=== PATIENT | male | born 2000 | race Caucasian/White ===

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

== ENCOUNTER 2020-09-05 15:29 | Emergency (ER) | payer BC ==
[~2020-09-05] VITALS: Ht 180.3 cm; Wt 75.7 kg
[2020-09-05 17:54] LABS: BASO % 0.4 % (0.0-1.0); EOS % 0.4 % (1.0-4.0); HEMATOCRIT 43.3 % (42.0-52.0); LYMPH # 2.2 10*3/uL (1.3-4.4); LYMPH % 27.8 % (27.0-41.0); MEAN CELL VOLUME 83.6 fl (80.0-94.0); MEAN CORPUSCULAR HGB 30.1 pg (27.0-31.0); MEAN PLATELET VOLUME 10.7 fl (9.6-12.3); MONO # 0.5 10*3/uL (0.1-1.0); MONO % 5.9 % (3.0-9.0); NEUT # 5.1 10*3/uL (2.3-7.9); NEUT % 65.4 % (47.0-73.0); PLATELET COUNT AUTOMATED 194 10*3/uL (130-400); RED BLOOD COUNT 5.18 10*6/uL (4.50-5.90); RED CELL DISTRI WIDTH 12.1 % (0-14.5); WHITE BLOOD COUNT 7.8 10*3/uL (4.8-10.8)
[2020-09-05 18:18] LABS: ALBUMIN 4.4 gm/dl (3.1-4.5); ALKALINE PHOSPHATASE 71 U/L (45-117); BUN 18 mg/dl (7-24); CHLORIDE 105 mmol/L (98-107); LIPASE 80 U/L (73-393); POTASSIUM 3.5 mmol/L (3.5-5.1); SGOT/AST 12 IU/L (3-35); SGPT/ALT 19 U/L (12-78); SODIUM 137 mmol/L (136-145); TOTAL PROTEIN 7.9 gm/dL (6.4-8.2)
== END 2020-09-05 19:06 | disposition home or self-care (01) ==
LOC: ED 15:29
PROVIDERS: Emergency Medicine
DX: B35.3 Tinea pedis (principal); L25.9 Unspecified contact dermatitis, unspecified cause; F17.200 Nicotine dependence, unspecified, uncomplicated; Z98.890 Other specified postprocedural states

== ENCOUNTER → 2022-03-14 | Outpatient (CLI) | payer BC | LOC: RAD 10:44 | PROVIDERS: ATTEND Nurse Practitioner Family | DX: R10.13 Epigastric pain (principal); M85.38 Osteitis condensans, other site; Z90.49 Acquired absence of other specified parts of digestive tract ==

== ENCOUNTER → 2022-04-25 | Outpatient (CLI) | payer BC | END | disposition home or self-care (01) | LOC: CT 04-15 09:00 | PROVIDERS: ATTEND Nurse Practitioner Family | DX: R10.13 Epigastric pain (principal); R10.9 Unspecified abdominal pain ==

== ENCOUNTER 2022-12-23 13:18 | Inpatient (IN) | payer OTHER ==
[2022-12-23] VITALS (7 sets, daily range): BP systolic 116–153; BP diastolic 56–93
[~2022-12-23] VITALS: Ht 182.9 cm; Wt 85.7 kg
[2022-12-23 14:01] LABS: BILIRUBIN Negative (Negative); BLOOD Negative (Negative); CLARITY Clear (Clear); COLOR Yellow (Yellow); GLUCOSE Negative (Negative); KETONE 4+ (Negative); LEUKO ESTERASE Negative (Negative); NITRITE Negative (Negative); PH 6.5 (4.5-8.0); SPECIFIC GRAVITY >= 1.030 (1.001-1.030)
[2022-12-23 14:09] LABS: HEMATOCRIT 44.1 % (42.0-52.0); MEAN CELL VOLUME 84.2 fl (80.0-94.0); MEAN CORPUSCULAR HGB 30.3 pg (27.0-31.0); MEAN CORPUSCULAR HGB CONC 36.1 g/dl (33.0-37.0); MEAN PLATELET VOLUME 9.8 fl (9.6-12.3); PLATELET COUNT AUTOMATED 194 10*3/uL (130-400); RED BLOOD COUNT 5.24 10*6/uL (4.50-5.90); RED CELL DISTRI WIDTH 12.1 % (0-14.5); WHITE BLOOD COUNT 16.4 10*3/uL (4.8-10.8)
[2022-12-23 14:15] LABS: MANUAL DIFF REFLEX YES
[2022-12-23 14:28] LABS: BACTERIA 1+; FINE GRANULAR CAST 0-2; MUCOUS 1+
[2022-12-23 14:31] LABS: TOTAL CELLS COUNTED 100 #CELLS
[2022-12-23 14:32] LABS: PLATELET SUFFICIENCY NORMAL (NORMAL)
[2022-12-23 14:33] LABS: ALKALINE PHOSPHATASE 68 U/L (46-116); BUN 10 mg/dl (9-23); CHLORIDE 103 mmol/L (98-107); LIPASE 26 U/L (12-53); POTASSIUM 3.9 mmol/L (3.4-5.1); SGPT/ALT 37 U/L (10-49); TOTAL PROTEIN 7.6 gm/dL (6.0-8.0)
[2022-12-24] VITALS: BP 142/82
[2022-12-24 05:12] LABS: ALKALINE PHOSPHATASE 62 U/L (46-116); BUN 10 mg/dl (9-23); CHLORIDE 104 mmol/L (98-107); CHOLESTEROL 143 mg/dL (<200); LDL CHOLESTEROL 71 mg/dL (9-159); SGPT/ALT 32 U/L (10-49); TOTAL PROTEIN 7.1 gm/dL (6.0-8.0); TRIGLYCERIDES 29 mg/dl (<150)
[2022-12-24 06:39] LABS: HEMATOCRIT 42.4 % (42.0-52.0); MEAN CORPUSCULAR HGB 29.9 pg (27.0-31.0); MEAN CORPUSCULAR HGB CONC 35.1 g/dl (33.0-37.0); MEAN PLATELET VOLUME 11.1 fl (9.6-12.3); PLATELET COUNT AUTOMATED 220 10*3/uL (130-400); RED BLOOD COUNT 4.99 10*6/uL (4.50-5.90); RED CELL DISTRI WIDTH 12.2 % (0-14.5); WHITE BLOOD COUNT 14.2 10*3/uL (4.8-10.8)
[2022-12-24 06:40] LABS: MANUAL DIFF REFLEX YES
[2022-12-24 07:28] LABS: BASOPHILS 1 % (0-1); PLATELET SUFFICIENCY NORMAL (NORMAL); POLYCHROMASIA SLIGHT; TOTAL CELLS COUNTED 100 #CELLS; TOXIC GRANULATION SLIGHT
[2022-12-24 07:29] LABS: BURR CELLS MODERATE; OVALOCYTES FEW; VACUOLATION OF NEUTROPHILS SLIGHT
[2022-12-24 08:00] VITALS: BP 128/56
[2022-12-24] MEDS ORDERED: COLACE100 MG PO (11:14)
[2022-12-24] MEDS ORDERED: HYDROCODONE-AC1 EAC1 PO (12:44)
== END 2022-12-24 12:11 | disposition home or self-care (01) | DRG 343 ==
LOC: ED 13:18 → 5E 17:07 → EDHOLD 17:07 → 5E 17:19
PROVIDERS: Physician Assistant Medical; Student in an Organized Health Care Education/Training Program; ADMIT Internal Medicine; ATTEND Internal Medicine
PROC: 0DTJ4ZZ Resection of Appendix, Percutaneous Endoscopic Approach (ICD-10-PCS; principal; 2022-12-23)
DX: K35.80 Unspecified acute appendicitis (principal); D72.829 Elevated white blood cell count, unspecified; D72.825 Bandemia; E80.6 Other disorders of bilirubin metabolism; R82.71 Bacteriuria; R82.4 Acetonuria; E88.09 Other disorders of plasma-protein metabolism, not elsewhere classified; Z82.49 Family history of ischemic heart disease and other diseases of the circulatory system; Z82.3 Family history of stroke

== ENCOUNTER → 2023-02-06 | Outpatient (CLI) | payer OTHER ==
[~2023-02-06] MED LIST changes: +COLACE100 MG PO; +HYDROCODONE-AC1 EAC1 PO
== END | disposition home or self-care (01) ==
LOC: RAD 11:44
PROVIDERS: ATTEND Nurse Practitioner Family
DX: R07.81 Pleurodynia (principal)